=== PATIENT | male | born 1975 | race Two or more races ===

== ENCOUNTER 2021-12-15 03:16 | Emergency (ER) | payer OTHER ==
[~2021-12-15] VITALS: Ht 170.2 cm; Wt 97.5 kg
[2021-12-15] MEDS ORDERED: LOSARTAN-HCTZ1 EAC2 (04:00)
[2021-12-15] MEDS ORDERED: NORFLEX100MG PO (08:12)
[2021-12-15] MEDS ORDERED: HORIZANT300 MG PO (08:12)
== END 2021-12-15 08:30 ==
LOC: ER 03:16
DX: M62.838 Other muscle spasm (principal); Z88.6 Allergy status to analgesic agent; I10 Essential (primary) hypertension